=== PATIENT | male | born 1990 | race Caucasian/White ===

== ENCOUNTER 2024-06-20 19:01 | Emergency (ER) | payer BC ==
[2024-06-20] MEDS: Lidocaine 1% 20 ML MDV ONE (19:48)
[2024-06-20] MEDS: Lidocaine 1% 50 ML MDV INJECT ONE (19:48)
[2024-06-20] MEDS: Bacitracin Oint 15 GM Tube TOP ONE (20:38)
[2024-06-20] MEDS: Lidocaine 1% 20 ML MDV INJECT ONE (20:38)
== END 2024-06-20 20:37 | disposition home or self-care (01) ==
LOC: JD.ED 19:01
DX: S61.412A Laceration without foreign body of left hand, initial encounter (principal); F17.210 Nicotine dependence, cigarettes, uncomplicated; Z86.16 Personal history of COVID-19; W23.1XXA Caught, crushed, jammed, or pinched between stationary objects, initial encounter
CPT/HCPCS: 12002; 99282; A9270; J3490